=== PATIENT | female | born 1960 | race Two or more races ===

== ENCOUNTER 2017-05-01 23:03 | Emergency (ER) | payer MEDICAID ==
[~2017-05-01] VITALS: Ht 170.2 cm; Wt 79.4 kg
[2017-05-01 23:10] VITALS: BP 140/61
== END 2017-05-02 03:00 | disposition left against medical advice (07) ==
LOC: ER 23:17
DX: F10.10 Alcohol abuse, uncomplicated (principal); Z53.21 Procedure and treatment not carried out due to patient leaving prior to being seen by health care provider